=== PATIENT | male | born 1950 | race Caucasian/White ===

== ENCOUNTER → 2020-09-07 | Day surgery (SDC) | payer MEDICARE, OTHER ==
[~2020-09-07] MED LIST: ATORVASTATIN CA80 MG PO; CLOPIDOGREL75 MG PO; FLOMAX 0.4 MG0.4 MG PO; GARLIC1000 MG PO; GLUCOSAMINE CH1 EAC2 PO; PROTONIX 40MG T40 MG PO; SYNTHROID25 MCG PO; [UNRECOGNIZED DRUG - OTHER] PO
[2020-09-07 08:43] LABS: HCT 50.9 % (42.0-52.0); HGB 17.1 g/dl (13.2-18.0); MCH 29.9 pg (25.0-31.0); MCHC 33.6 g/dL (32.0-36.0); MPV 10.6 fL (6.0-9.5); RBC 5.72 M/uL (4.70-6.00); RDW 12.5 % (11.5-14.0); WBC 9.2 K/uL (4.0-10.5)
[2020-09-07 09:01] LABS: BILIRUBIN - TOTAL 1.1 mg/dL (0.2-1.0); BUN/CREAT RATIO (CALC) 11.1 RATIO; CREATININE 1.08 mg/dL (0.67-1.17); POTASSIUM 4.7 mmol/L (3.5-5.1)
== END | disposition home or self-care (01) ==
LOC: FAS 07:48
PROVIDERS: Surgery
DX: Z12.11 Encounter for screening for malignant neoplasm of colon (principal); C61 Malignant neoplasm of prostate; I25.10 Atherosclerotic heart disease of native coronary artery without angina pectoris; I10 Essential (primary) hypertension; E78.5 Hyperlipidemia, unspecified; K21.9 Gastro-esophageal reflux disease without esophagitis; E03.9 Hypothyroidism, unspecified; I25.2 Old myocardial infarction; Z83.3 Family history of diabetes mellitus; Z82.49 Family history of ischemic heart disease and other diseases of the circulatory system
CPT/HCPCS: 36415; 80053; J2704; J7120